=== PATIENT | male | born 1980 | race Caucasian/White ===

== ENCOUNTER 2017-08-09 14:10 | Emergency (ER) | payer SELFPAY ==
[~2017-08-09] VITALS: Ht 180.3 cm; Wt 86.0 kg
[2017-08-09] MEDS ORDERED: PEN-VEE K,VEET500 MG PO (15:33)
[2017-08-09] MEDS ORDERED: NORCO 5/3251 TABLET PO (15:33)
[2017-08-09 15:55] VITALS: BP 157/99
== END 2017-08-09 15:55 | disposition home or self-care (01) ==
LOC: EME 14:10
DX: K02.9 Dental caries, unspecified (principal); K03.81 Cracked tooth; F17.210 Nicotine dependence, cigarettes, uncomplicated
CPT/HCPCS: 99281; 99283